=== PATIENT | male | born 1960 | race Caucasian/White ===

== ENCOUNTER → 2016-07-21 | Outpatient (CLI) | payer MEDICARE, OTHER | LOC: HEART 5 08:08 | DX: R07.9 Chest pain, unspecified (principal); R00.2 Palpitations; I10 Essential (primary) hypertension; R06.00 Dyspnea, unspecified; I07.1 Rheumatic tricuspid insufficiency | CPT/HCPCS: 78452; 93306; A9502; J2785 ==